=== PATIENT | female | born 1935 | race Caucasian/White ===

== ENCOUNTER 2020-02-11 07:05 | Outpatient (REF) | payer MEDICARE, SELFPAY ==
[2020-02-11 07:45] LABS: MANUAL DIFF FLAG NO
[2020-02-11 07:54] LABS: Basophils Percent Auto 0.6 % (0-2); Eosinophils Absolute Auto 0.1 X10*3/uL (0.0-0.4); Eosinophils Percent Auto 2.5 % (0-4); Hematocrit 45.4 % (37-47); Hemoglobin 14.6 g/dl (12.0-16.0); Imm Gran Abs Auto 0.02 X10*3/uL (0.00-0.03); Imm Gran Pct Auto 0.4 % (0.0-0.4); Lymphocytes Absolute Auto 1.6 X10*3/uL (1.2-4.9); Lymphocytes Percent Auto 33.7 % (20-40); Mean Corpuscular HGB Conc 32.2 g/dl (31.0-35.0); Mean Corpuscular Hemoglobin 29.6 pg (27.0-33.0); Mean Corpuscular Volume 91.9 fL (80-98); Mean Platelet Volume 10.9 fL (9.4-12.3); Monocytes Absolute Auto 0.5 X10*3/uL (0.1-1.2); Monocytes Percent Auto 10.3 % (2-11); Neutrophils Absolute Auto 2.5 X10*3/uL (2.0-8.3); Neutrophils Percent Auto 52.5 % (45-73); Platelet Count 146 X10*3/uL (160-400); Red Blood Count 4.94 X10*6/uL (4.20-5.50); Red Cell Distribution Width 12.4 % (11.0-16.0); White Blood Count 4.8 X10*3/uL (4.8-10.8)
[2020-02-11 08:17] LABS: Alanine Aminotransferase 11 U/L (0-31); Albumin Level 4.1 g/dL (3.5-5.0); Alkaline Phosphatase 90 U/L (39-117); Anion Gap 13 (12-20); Aspartate Amino Transferase 16 U/L (5-31); Blood Urea Nitrogen 13 mg/dL (9-16); Calcium 8.8 mg/dL (8.4-10.2); Carbon Dioxide 26 mmol/L (22-29); Chloride 107 mmol/L (96-108); Cholesterol 148 mg/dL; Estimated Glomerular Filt Rate 57; Glucose Fasting 103 mg/dL (60-99); HDL Cholesterol 42 mg/dL; LDL Cholesterol Calculated 78 mg/dl; Potassium 4.6 mmol/l (3.3-5.1); Sodium 141 mmol/L (135-145); Total Protein 6.5 g/dL (6.5-8.0); Triglycerides 140 mg/dL
== END 2020-02-11 07:06 | disposition home or self-care (01) ==
LOC: HO.LAB 07:05
PROVIDERS: Visit Provider Internal Medicine
DX: Z00.00 Encounter for general adult medical examination without abnormal findings (principal); E78.00 Pure hypercholesterolemia, unspecified; I10 Essential (primary) hypertension; M17.4 Other bilateral secondary osteoarthritis of knee; Z13.31 Encounter for screening for depression
CPT/HCPCS: 36415; 80053; 80061; 85025

== ENCOUNTER 2020-07-30 07:29 | Outpatient (REF) | payer MEDICARE, SELFPAY ==
[2020-07-30 09:27] LABS: Alanine Aminotransferase 8 U/L (0-31); Albumin Level 3.8 g/dL (3.5-5.0); Alkaline Phosphatase 95 U/L (39-117); Anion Gap 13 (12-20); Aspartate Amino Transferase 17 U/L (5-31); Blood Urea Nitrogen 13 mg/dL (9-16); Carbon Dioxide 25 mmol/L (22-29); Chloride 110 mmol/L (96-108); Estimated Glomerular Filt Rate 57; Glucose Random 103 mg/dL (60-115); Potassium 4.6 mmol/L (3.3-5.1); Sodium 143 mmol/L (135-145); Total Protein 6.3 g/dL (6.5-8.0)
== END 2020-07-30 07:30 | disposition home or self-care (01) ==
LOC: HO.LAB 07:29
PROVIDERS: PCP Internal Medicine; Visit Provider Internal Medicine
DX: E78.00 Pure hypercholesterolemia, unspecified (principal); I10 Essential (primary) hypertension; Z68.29 Body mass index [BMI] 29.0-29.9, adult
CPT/HCPCS: 36415; 80053

== ENCOUNTER 2021-02-05 09:17 | Outpatient (REF) | payer MEDICARE, SELFPAY ==
[2021-02-05 10:20] LABS: MANUAL DIFF FLAG NO
[2021-02-05 10:25] LABS: Basophils Percent Auto 0.6 % (0-2); Eosinophils Absolute Auto 0.1 X10*3/uL (0.0-0.4); Eosinophils Percent Auto 2.1 % (0-4); Hematocrit 45.9 % (37.0-47.0); Hemoglobin 14.8 g/dl (12.0-16.0); Imm Gran Abs Auto 0.01 X10*3/uL (0.00-0.03); Imm Gran Pct Auto 0.2 % (0.0-0.4); Lymphocytes Absolute Auto 1.4 X10*3/uL (1.2-4.9); Lymphocytes Percent Auto 27.4 % (20-40); Mean Corpuscular HGB Conc 32.2 g/dl (31.0-35.0); Mean Platelet Volume 10.9 fL (9.4-12.3); Monocytes Absolute Auto 0.6 X10*3/uL (0.1-1.2); Monocytes Percent Auto 11.2 % (2-11); Neutrophils Absolute Auto 3.1 x10*3/uL (2.0-8.3); Neutrophils Percent Auto 58.5 % (45-73); Platelet Count 151 X10*3/uL (160-400); Red Cell Distribution Width 12.2 % (11.0-16.0); White Blood Count 5.3 X10*3/uL (4.8-10.8)
[2021-02-05 10:49] LABS: Alanine Aminotransferase 14 U/L (0-31); Albumin Level 4.2 g/dL (3.5-5.0); Alkaline Phosphatase 88 U/L (39-117); Anion Gap 10 (12-20); Aspartate Amino Transferase 19 U/L (5-31); Bilirubin Total 1.1 mg/dL (0.0-1.0); Blood Urea Nitrogen 13 mg/dL (9-16); Calcium 9.1 mg/dL (8.4-10.2); Carbon Dioxide 28 mmol/L (22-29); Chloride 107 mmol/L (96-108); Cholesterol 155 mg/dL; Estimated Glomerular Filt Rate 54; Glucose Fasting 109 mg/dL (60-99); HDL Cholesterol 45 mg/dL; LDL Cholesterol Calculated 79 mg/dl; Potassium 4.4 mmol/L (3.3-5.1); Sodium 141 mmol/L (135-145); Total Protein 6.8 g/dL (6.5-8.0); Triglycerides 159 mg/dL
[2021-02-05 11:12] LABS: Thyroid Stimulating Hormone 0.76 uIU/mL (0.32-4.0)
== END 2021-02-05 09:18 | disposition home or self-care (01) ==
LOC: HO.10HDL 09:17
PROVIDERS: Visit Provider Internal Medicine
DX: Z00.00 Encounter for general adult medical examination without abnormal findings (principal); E78.00 Pure hypercholesterolemia, unspecified; I10 Essential (primary) hypertension; Z85.038 Personal history of other malignant neoplasm of large intestine; Z85.3 Personal history of malignant neoplasm of breast
CPT/HCPCS: 36415; 80053; 80061; 84443; 85025

== ENCOUNTER 2021-09-23 07:36 | Outpatient (REF) | payer MEDICARE, SELFPAY ==
[2021-09-23 07:58] LABS: MANUAL DIFF FLAG NO
[2021-09-23 08:47] LABS: Basophils Percent Auto 0.5 % (0-2); Eosinophils Absolute Auto 0.1 X10*3/uL (0.0-0.4); Eosinophils Percent Auto 2.5 % (0-4); Hematocrit 43.9 % (37.0-47.0); Imm Gran Abs Auto 0.01 X10*3/uL (0.00-0.03); Imm Gran Pct Auto 0.2 % (0.0-0.4); Lymphocytes Absolute Auto 1.5 X10*3/uL (1.2-4.9); Lymphocytes Percent Auto 35.2 % (20-40); Mean Corpuscular HGB Conc 31.9 g/dl (31.0-35.0); Mean Corpuscular Hemoglobin 28.7 pg (27.0-33.0); Monocytes Absolute Auto 0.5 X10*3/uL (0.1-1.2); Monocytes Percent Auto 11.2 % (2-11); Neutrophils Absolute Auto 2.2 x10*3/uL (2.0-8.3); Neutrophils Percent Auto 50.4 % (45-73); Platelet Count 132 X10*3/uL (160-400); Red Blood Count 4.88 X10*6/uL (4.20-5.50); Red Cell Distribution Width 12.3 % (11.0-16.0); White Blood Count 4.4 X10*3/uL (4.8-10.8)
[2021-09-23 09:05] LABS: Alanine Aminotransferase 15 U/L (0-31); Albumin Level 3.8 g/dL (3.5-5.0); Alkaline Phosphatase 89 U/L (39-117); Anion Gap 10 (12-20); Aspartate Amino Transferase 20 U/L (5-31); Bilirubin Total 0.8 mg/dL (0.0-1.0); Blood Urea Nitrogen 10 mg/dL (9-16); Calcium 8.8 mg/dL (8.4-10.2); Carbon Dioxide 28 mmol/L (22-29); Chloride 110 mmol/L (96-108); Estimated Glomerular Filt Rate 57; Glucose Random 112 mg/dL (60-115); Potassium 4.4 mmol/L (3.3-5.1); Sodium 144 mmol/L (135-145); Total Protein 6.2 g/dL (6.5-8.0)
== END 2021-09-23 07:37 | disposition home or self-care (01) ==
LOC: HO.LAB 07:36
PROVIDERS: PCP Internal Medicine; Visit Provider Internal Medicine
DX: D69.6 Thrombocytopenia, unspecified (principal); E78.00 Pure hypercholesterolemia, unspecified; I10 Essential (primary) hypertension
CPT/HCPCS: 36415; 80053; 85025

== ENCOUNTER 2021-10-19 14:15 | Outpatient (REF) | payer MEDICARE, SELFPAY ==
--- NOTE | ~2021-10-19 | XR_ITS ---
EXAMINATION: XR LUMBAR SPINE XR PELVIS CLINICAL INFORMATION: Low back pain. Pelvic pain. COMPARISON: None TECHNIQUE: 3 views lumbar spine. Pelvis 2 views. FINDINGS: Lumbar Spine: There is normal lumbar lordosis. The vertebral heights, alignment and disc heights are normal. There is mild bilateral facet joint hypertrophy at the L5-S1 disc level slightly greater on the right. No acute fracture or lytic process seen. The paravertebral soft tissues are normal. Pelvis: The pelvis is mildly tilted right higher than left hip. SI joints are symmetrical. No fracture or lytic process seen. The soft tissues are normal. XR/XR pelvis min 3V IMPRESSION: Moderate right L5-S1 facet joint arthropathy. No acute fracture, dislocation or lytic process lumbar spine. Mild pelvic tilt; otherwise, no visible acute fracture, dislocation or lytic process seen.
--- NOTE | ~2021-10-19 | XR_ITS ---
EXAMINATION: XR LUMBAR SPINE XR PELVIS CLINICAL INFORMATION: Low back pain. Pelvic pain. COMPARISON: None TECHNIQUE: 3 views lumbar spine. Pelvis 2 views. FINDINGS: Lumbar Spine: There is normal lumbar lordosis. The vertebral heights, alignment and disc heights are normal. There is mild bilateral facet joint hypertrophy at the L5-S1 disc level slightly greater on the right. No acute fracture or lytic process seen. The paravertebral soft tissues are normal. Pelvis: The pelvis is mildly tilted right higher than left hip. SI joints are symmetrical. No fracture or lytic process seen. The soft tissues are normal. XR/XR lumbar spine 2-3V IMPRESSION: Moderate right L5-S1 facet joint arthropathy. No acute fracture, dislocation or lytic process lumbar spine. Mild pelvic tilt; otherwise, no visible acute fracture, dislocation or lytic process seen.
== END 2021-10-19 14:16 | disposition home or self-care (01) ==
LOC: HO.XRAY 14:15
PROVIDERS: PCP Internal Medicine; Visit Provider Internal Medicine Medical Oncology
DX: C18.9 Malignant neoplasm of colon, unspecified (principal); M54.50 Low back pain, unspecified; C50.919 Malignant neoplasm of unspecified site of unspecified female breast
CPT/HCPCS: 72100; 72190

== ENCOUNTER 2022-01-12 07:50 | Outpatient (REF) | payer MEDICARE, SELFPAY ==
[2022-01-12 08:04] LABS: MANUAL DIFF FLAG NO
[2022-01-12 08:19] LABS: Basophils Percent Auto 0.5 % (0-2); Eosinophils Absolute Auto 0.1 X10*3/uL (0.0-0.4); Eosinophils Percent Auto 2.9 % (0-4); Hematocrit 44.5 % (37.0-47.0); Hemoglobin 14.3 g/dl (12.0-16.0); Imm Gran Abs Auto 0.01 X10*3/uL (0.00-0.03); Imm Gran Pct Auto 0.3 % (0.0-0.4); Lymphocytes Absolute Auto 1.4 X10*3/uL (1.2-4.9); Lymphocytes Percent Auto 36.5 % (20-40); Mean Corpuscular HGB Conc 32.1 g/dl (31.0-35.0); Mean Corpuscular Hemoglobin 28.9 pg (27.0-33.0); Mean Corpuscular Volume 90.1 fL (80.0-98.0); Mean Platelet Volume 10.9 fL (9.4-12.3); Monocytes Absolute Auto 0.5 X10*3/uL (0.1-1.2); Monocytes Percent Auto 11.7 % (2-11); Neutrophils Absolute Auto 1.9 x10*3/uL (2.0-8.3); Neutrophils Percent Auto 48.1 % (45-73); Platelet Count 149 X10*3/uL (160-400); Red Blood Count 4.94 X10*6/uL (4.20-5.50); Red Cell Distribution Width 12.5 % (11.0-16.0); White Blood Count 3.8 X10*3/uL (4.8-10.8)
[2022-01-12 08:59] LABS: Alanine Aminotransferase 13 U/L (0-31); Albumin Level 4.1 g/dL (3.5-5.0); Alkaline Phosphatase 86 U/L (39-117); Anion Gap 15 (12-20); Aspartate Amino Transferase 22 U/L (5-31); Blood Urea Nitrogen 10 mg/dL (9-16); Calcium 9.2 mg/dL (8.4-10.2); Carbon Dioxide 27 mmol/L (22-29); Chloride 106 mmol/L (96-108); Cholesterol 147 mg/dL; Estimated Glomerular Filt Rate 50; Glucose Fasting 112 mg/dL (60-99); HDL Cholesterol 43 mg/dL; LDL Cholesterol Calculated 78 mg/dl; Potassium 4.6 mmol/L (3.3-5.1); Sodium 143 mmol/L (135-145); Total Protein 6.6 g/dL (6.5-8.0); Triglycerides 133 mg/dL
== END 2022-01-12 07:51 | disposition home or self-care (01) ==
LOC: HO.LAB 07:50
PROVIDERS: PCP Internal Medicine; Visit Provider Internal Medicine Medical Oncology
DX: E66.3 Overweight (principal); E78.2 Mixed hyperlipidemia
CPT/HCPCS: 36415; 80053; 80061; 85025

== ENCOUNTER 2022-01-29 08:06 | Outpatient (REF) | payer MEDICARE, SELFPAY ==
[2022-01-29 08:21] LABS: MANUAL DIFF FLAG NO
[2022-01-29 09:01] LABS: Basophils Percent Auto 0.5 % (0-2); Eosinophils Absolute Auto 0.1 X10*3/uL (0.0-0.4); Eosinophils Percent Auto 2.4 % (0-4); Hematocrit 45.2 % (37.0-47.0); Hemoglobin 14.3 g/dl (12.0-16.0); Imm Gran Abs Auto 0.01 X10*3/uL (0.00-0.03); Imm Gran Pct Auto 0.2 % (0.0-0.4); Lymphocytes Absolute Auto 1.6 X10*3/uL (1.2-4.9); Lymphocytes Percent Auto 38.6 % (20-40); Mean Corpuscular HGB Conc 31.6 g/dl (31.0-35.0); Mean Corpuscular Hemoglobin 28.6 pg (27.0-33.0); Mean Corpuscular Volume 90.4 fL (80.0-98.0); Monocytes Absolute Auto 0.4 X10*3/uL (0.1-1.2); Monocytes Percent Auto 10.3 % (2-11); Platelet Count 134 X10*3/uL (160-400); Red Cell Distribution Width 12.8 % (11.0-16.0); White Blood Count 4.1 X10*3/uL (4.8-10.8)
[2022-01-29 09:27] LABS: Estimated Average Glucose 120 mg/dL; Hemoglobin A1c % 5.8 %
[2022-01-29 09:40] LABS: Alanine Aminotransferase 16 U/L (0-31); Albumin Level 4.1 g/dL (3.5-5.0); Alkaline Phosphatase 88 U/L (39-117); Anion Gap 14 (12-20); Aspartate Amino Transferase 20 U/L (5-31); Blood Urea Nitrogen 11 mg/dL (9-16); Calcium 9.4 mg/dL (8.4-10.2); Carbon Dioxide 26 mmol/L (22-29); Chloride 109 mmol/L (96-108); Cholesterol 161 mg/dL; Estimated Glomerular Filt Rate 57; Glucose Random 103 mg/dL (60-115); HDL Cholesterol 48 mg/dL; LDL Cholesterol Calculated 89 mg/dl; Potassium 5.1 mmol/L (3.3-5.1); Sodium 144 mmol/L (135-145); Total Protein 6.7 g/dL (6.5-8.0); Triglycerides 121 mg/dL
[2022-01-29 09:50] LABS: Thyroid Stimulating Hormone 0.61 uIU/mL (0.32-4.0); Vitamin D 25-OH Total 13.5 ng/mL (>30)
== END 2022-01-29 08:07 | disposition home or self-care (01) ==
LOC: HO.LAB 08:06
PROVIDERS: PCP Internal Medicine; Visit Provider Internal Medicine
DX: D69.6 Thrombocytopenia, unspecified (principal); I10 Essential (primary) hypertension; M79.18 Myalgia, other site; R53.83 Other fatigue; R73.01 Impaired fasting glucose; Z85.038 Personal history of other malignant neoplasm of large intestine
CPT/HCPCS: 36415; 80053; 80061; 82306; 83036; 84443; 85025

== ENCOUNTER 2022-03-31 08:14 | Outpatient (REF) | payer MEDICARE, SELFPAY ==
[2022-03-31 08:24] LABS: MANUAL DIFF FLAG NO
[2022-03-31 08:35] LABS: Basophils Absolute Auto 0.1 X10*3/uL (0.0-0.2); Basophils Percent Auto 0.9 % (0-2); Eosinophils Absolute Auto 0.1 X10*3/uL (0.0-0.4); Eosinophils Percent Auto 2.2 % (0-4); Hematocrit 47.5 % (37.0-47.0); Hemoglobin 15.4 g/dl (12.0-16.0); Imm Gran Abs Auto 0.02 X10*3/uL (0.00-0.03); Imm Gran Pct Auto 0.4 % (0.0-0.4); Lymphocytes Absolute Auto 1.8 X10*3/uL (1.2-4.9); Lymphocytes Percent Auto 33.1 % (20-40); Mean Corpuscular HGB Conc 32.4 g/dl (31.0-35.0); Mean Corpuscular Hemoglobin 28.9 pg (27.0-33.0); Mean Corpuscular Volume 89.1 fL (80.0-98.0); Mean Platelet Volume 10.6 fL (9.4-12.3); Monocytes Absolute Auto 0.6 X10*3/uL (0.1-1.2); Monocytes Percent Auto 11.2 % (2-11); Neutrophils Absolute Auto 2.8 x10*3/uL (2.0-8.3); Neutrophils Percent Auto 52.2 % (45-73); Platelet Count 146 X10*3/uL (160-400); Red Blood Count 5.33 X10*6/uL (4.20-5.50); Red Cell Distribution Width 12.3 % (11.0-16.0); White Blood Count 5.4 X10*3/uL (4.8-10.8)
== END 2022-03-31 08:15 | disposition home or self-care (01) ==
LOC: HO.LAB 08:14
PROVIDERS: PCP Internal Medicine; Visit Provider Internal Medicine Medical Oncology
DX: D69.6 Thrombocytopenia, unspecified (principal)
CPT/HCPCS: 36415; 85025

== ENCOUNTER 2022-07-28 08:03 | Outpatient (REF) | payer MEDICARE, SELFPAY ==
[2022-07-28 08:13] LABS: MANUAL DIFF FLAG NO
[2022-07-28 08:21] LABS: Basophils Percent Auto 0.6 % (0-2); Eosinophils Absolute Auto 0.1 X10*3/uL (0.0-0.4); Eosinophils Percent Auto 2.6 % (0-4); Imm Gran Abs Auto 0.01 X10*3/uL (0.00-0.03); Imm Gran Pct Auto 0.2 % (0.0-0.4); Lymphocytes Absolute Auto 1.6 X10*3/uL (1.2-4.9); Lymphocytes Percent Auto 31.7 % (20-40); Mean Corpuscular HGB Conc 32.6 g/dl (31.0-35.0); Mean Corpuscular Hemoglobin 29.6 pg (27.0-33.0); Mean Corpuscular Volume 90.7 fL (80.0-98.0); Mean Platelet Volume 10.6 fL (9.4-12.3); Monocytes Absolute Auto 0.5 X10*3/uL (0.1-1.2); Monocytes Percent Auto 10.3 % (2-11); Neutrophils Absolute Auto 2.8 x10*3/uL (2.0-8.3); Neutrophils Percent Auto 54.6 % (45-73); Platelet Count 141 X10*3/uL (160-400); Red Blood Count 5.07 X10*6/uL (4.20-5.50); Red Cell Distribution Width 12.6 % (11.0-16.0); White Blood Count 5.1 X10*3/uL (4.8-10.8)
[2022-07-28 08:58] LABS: Alanine Aminotransferase 10 U/L (0-31); Alkaline Phosphatase 102 U/L (39-117); Anion Gap 9 (12-20); Aspartate Amino Transferase 16 U/L (5-31); Bilirubin Total 1.1 mg/dL (0.0-1.0); Blood Urea Nitrogen 16 mg/dL (9-16); Calcium 9.3 mg/dL (8.4-10.2); Carbon Dioxide 30 mmol/L (22-29); Chloride 110 mmol/L (96-108); Estimated Glomerular Filt Rate 51; Glucose Random 107 mg/dL (60-115); Potassium 4.7 mmol/L (3.3-5.1); Sodium 144 mmol/L (135-145); Total Protein 6.5 g/dL (6.5-8.0)
[2022-07-28 09:12] LABS: Vitamin D 25-OH Total 25.2 ng/mL (>30)
== END 2022-07-28 08:04 | disposition home or self-care (01) ==
LOC: HO.LAB 08:03
PROVIDERS: PCP Internal Medicine Medical Oncology; Visit Provider Internal Medicine
DX: Z00.00 Encounter for general adult medical examination without abnormal findings (principal); D69.6 Thrombocytopenia, unspecified; E78.00 Pure hypercholesterolemia, unspecified; I10 Essential (primary) hypertension; M81.0 Age-related osteoporosis without current pathological fracture
CPT/HCPCS: 36415; 80053; 82306; 85025

== ENCOUNTER 2022-08-30 09:01 | Outpatient (REF) | payer MEDICARE, SELFPAY ==
[2022-08-30 09:15] LABS: MANUAL DIFF FLAG NO
[2022-08-30 09:37] LABS: Basophils Percent Auto 0.6 % (0-2); Eosinophils Absolute Auto 0.1 X10*3/uL (0.0-0.4); Eosinophils Percent Auto 2.3 % (0-4); Hematocrit 47.9 % (37.0-47.0); Hemoglobin 15.2 g/dl (12.0-16.0); Imm Gran Abs Auto 0.01 X10*3/uL (0.00-0.03); Imm Gran Pct Auto 0.2 % (0.0-0.4); Lymphocytes Absolute Auto 1.6 X10*3/uL (1.2-4.9); Lymphocytes Percent Auto 30.2 % (20-40); Mean Corpuscular HGB Conc 31.7 g/dl (31.0-35.0); Mean Corpuscular Hemoglobin 28.9 pg (27.0-33.0); Mean Corpuscular Volume 91.1 fL (80.0-98.0); Mean Platelet Volume 10.9 fL (9.4-12.3); Monocytes Absolute Auto 0.5 X10*3/uL (0.1-1.2); Monocytes Percent Auto 10.1 % (2-11); Neutrophils Percent Auto 56.6 % (45-73); Platelet Count 144 X10*3/uL (160-400); Red Blood Count 5.26 X10*6/uL (4.20-5.50); Red Cell Distribution Width 12.4 % (11.0-16.0); White Blood Count 5.3 X10*3/uL (4.8-10.8)
[2022-08-30 10:20] LABS: Alanine Aminotransferase 13 U/L (0-31); Albumin Level 4.1 g/dL (3.5-5.0); Alkaline Phosphatase 99 U/L (39-117); Anion Gap 14 (12-20); Aspartate Amino Transferase 19 U/L (5-31); Bilirubin Total 1.1 mg/dL (0.0-1.0); Blood Urea Nitrogen 15 mg/dL (9-16); Calcium 9.3 mg/dL (8.4-10.2); Carbon Dioxide 24 mmol/L (22-29); Chloride 111 mmol/L (96-108); Estimated Glomerular Filt Rate 53; Glucose Random 111 mg/dL (60-115); Potassium 5.1 mmol/L (3.3-5.1); Sodium 144 mmol/L (135-145); Total Protein 6.7 g/dL (6.5-8.0)
== END 2022-08-30 09:02 | disposition home or self-care (01) ==
LOC: HO.LAB 09:01
PROVIDERS: PCP Internal Medicine; Visit Provider Internal Medicine Medical Oncology
DX: C18.9 Malignant neoplasm of colon, unspecified (principal); C50.919 Malignant neoplasm of unspecified site of unspecified female breast; D69.6 Thrombocytopenia, unspecified
CPT/HCPCS: 36415; 80053; 85025

== ENCOUNTER 2022-10-19 08:52 | Outpatient (REF) | payer MEDICARE, SELFPAY ==
--- NOTE | ~2022-10-19 | MM_ITS ---
EXAMINATION: MM SCREENING DIGITAL BREAST TOMOSYNTHESIS, BILATERAL CLINICAL INFORMATION: Screening. Asymptomatic. The patient has remote history of right breast cancer conservatively treated. COMPARISON: Mammography: This study is compared with prior exams dating back to 2013. TECHNIQUE: Digital breast tomosynthesis is performed in both the craniocaudal and mediolateral oblique views along with computer-aided detection (CAD). Synthesized 2D images are generated from the tomosynthesis. FINDINGS: There are scattered areas of fibroglandular density (ACR BI-RADS breast composition Category b). There are no significant masses, abnormal calcifications, or other abnormalities. There are postsurgical changes in the superior aspect of the right breast. There is associated fat necrosis in this which is manifested as benign macrocalcification. MM/MM tomosynthesis screening BI IMPRESSION: No mammographic evidence of malignancy. ASSESSMENT: BI-RADS BI-RADS 2 - Benign Findings RECOMMENDATION: Routine annual mammography screening. 1 year F/U This examination should not preclude the clinical evaluation of a suspicious palpable abnormality. This patient's information was entered into a reminder system with a target due date for their next mammogram.
== END 2022-10-19 08:53 | disposition home or self-care (01) ==
LOC: HO.MAMMO 08:52
PROVIDERS: PCP Internal Medicine Medical Oncology; Visit Provider Internal Medicine Medical Oncology
DX: Z12.31 Encounter for screening mammogram for malignant neoplasm of breast (principal)
CPT/HCPCS: 77063; 77067

== ENCOUNTER → 2022-10-19 09:15 | Outpatient (BNV) | payer MEDICARE, SELFPAY | PROVIDERS: PCP Internal Medicine Medical Oncology; Visit Provider Radiology Diagnostic Radiology | DX: Z12.31 Encounter for screening mammogram for malignant neoplasm of breast (principal) | CPT/HCPCS: 77063; 77067 ==

== ENCOUNTER 2023-03-08 07:46 | Outpatient (REF) | payer MEDICARE, SELFPAY ==
[2023-03-08 08:13] LABS: MANUAL DIFF FLAG NO
[2023-03-08 08:55] LABS: Basophils Percent Auto 0.6 % (0-2); Eosinophils Absolute Auto 0.1 X10*3/uL (0.0-0.4); Eosinophils Percent Auto 2.4 % (0-4); Hematocrit 43.3 % (37.0-47.0); Imm Gran Abs Auto 0.01 X10*3/uL (0.00-0.03); Imm Gran Pct Auto 0.2 % (0.0-0.4); Lymphocytes Absolute Auto 1.5 X10*3/uL (1.2-4.9); Lymphocytes Percent Auto 29.5 % (20-40); Mean Corpuscular HGB Conc 32.3 g/dl (31.0-35.0); Mean Corpuscular Hemoglobin 29.7 pg (27.0-33.0); Mean Corpuscular Volume 91.7 fL (80.0-98.0); Mean Platelet Volume 11.2 fL (9.4-12.3); Monocytes Absolute Auto 0.5 X10*3/uL (0.1-1.2); Monocytes Percent Auto 10.8 % (2-11); Neutrophils Absolute Auto 2.8 x10*3/uL (2.0-8.3); Neutrophils Percent Auto 56.5 % (45-73); Platelet Count 141 X10*3/uL (160-400); Red Blood Count 4.72 X10*6/uL (4.20-5.50); Red Cell Distribution Width 12.5 % (11.0-16.0)
[2023-03-08 09:24] LABS: Alanine Aminotransferase 10 U/L (0-31); Albumin Level 3.8 g/dL (3.5-5.0); Alkaline Phosphatase 93 U/L (39-117); Anion Gap 11 (12-20); Aspartate Amino Transferase 15 U/L (5-31); Bilirubin Total 0.8 mg/dL (0.0-1.0); Blood Urea Nitrogen 14 mg/dL (9-16); Calcium 8.4 mg/dL (8.4-10.2); Carbon Dioxide 29 mmol/L (22-29); Chloride 109 mmol/L (96-108); Cholesterol 138 mg/dL (<200); Estimated Glomerular Filt Rate 58; Glucose Random 109 mg/dL (60-115); HDL Cholesterol 43 mg/dL (>40); LDL Cholesterol Calculated 76 mg/dL (<100); Potassium 4.3 mmol/L (3.3-5.1); Sodium 145 mmol/L (135-145); Total Protein 6.4 g/dL (6.5-8.0); Triglycerides 97 mg/dL (<150)
[2023-03-08 09:43] LABS: Vitamin B12 > 2000 pg/mL (200-900)
[2023-03-08 09:46] LABS: Vitamin D 25-OH Total 26.2 ng/mL (>30)
== END 2023-03-08 07:47 | disposition home or self-care (01) ==
LOC: HO.LAB 07:46
PROVIDERS: PCP Internal Medicine; Visit Provider Internal Medicine
DX: D51.9 Vitamin B12 deficiency anemia, unspecified (principal); D69.6 Thrombocytopenia, unspecified; E78.00 Pure hypercholesterolemia, unspecified; I10 Essential (primary) hypertension; M81.8 Other osteoporosis without current pathological fracture
CPT/HCPCS: 36415; 80053; 80061; 82306; 82607; 85025

== ENCOUNTER 2023-09-05 08:00 | Outpatient (REF) | payer MEDICARE, SELFPAY ==
[2023-09-05 08:15] LABS: MANUAL DIFF FLAG NO
[2023-09-05 08:41] LABS: Basophils Percent Auto 0.7 % (0-2); Eosinophils Absolute Auto 0.1 X10*3/uL (0.0-0.4); Eosinophils Percent Auto 2.7 % (0-4); Hematocrit 43.9 % (37.0-47.0); Hemoglobin 14.5 g/dl (12.0-16.0); Imm Gran Abs Auto 0.02 X10*3/uL (0.00-0.03); Imm Gran Pct Auto 0.5 % (0.0-0.4); Lymphocytes Absolute Auto 1.4 X10*3/uL (1.2-4.9); Lymphocytes Percent Auto 32.5 % (20-40); Mean Corpuscular Hemoglobin 29.7 pg (27.0-33.0); Mean Corpuscular Volume 89.8 fL (80.0-98.0); Mean Platelet Volume 10.9 fL (9.4-12.3); Monocytes Absolute Auto 0.5 X10*3/uL (0.1-1.2); Monocytes Percent Auto 10.8 % (2-11); Neutrophils Absolute Auto 2.2 x10*3/uL (2.0-8.3); Neutrophils Percent Auto 52.8 % (45-73); Platelet Count 146 X10*3/uL (160-400); Red Blood Count 4.89 X10*6/uL (4.20-5.50); Red Cell Distribution Width 12.6 % (11.0-16.0); White Blood Count 4.2 X10*3/uL (4.8-10.8)
[2023-09-05 09:27] LABS: Alanine Aminotransferase 12 U/L (0-31); Albumin Level 3.9 g/dL (3.5-5.0); Alkaline Phosphatase 92 U/L (39-117); Anion Gap 14 (12-20); Aspartate Amino Transferase 18 U/L (5-31); Bilirubin Total 0.9 mg/dL (0.0-1.0); Blood Urea Nitrogen 15 mg/dL (9-16); Calcium 9.6 mg/dL (8.4-10.2); Carbon Dioxide 27 mmol/L (22-29); Chloride 109 mmol/L (96-108); Estimated Glomerular Filt Rate 60; Glucose Random 111 mg/dL (60-115); Potassium 4.2 mmol/L (3.3-5.1); Sodium 146 mmol/L (135-145); Total Protein 6.6 g/dL (6.5-8.0)
[2023-09-05 09:47] LABS: Ferritin 143 ng/mL (10-250)
== END 2023-09-05 08:01 | disposition home or self-care (01) ==
LOC: HO.LAB 08:00
PROVIDERS: PCP Internal Medicine; Visit Provider Internal Medicine
DX: Z00.00 Encounter for general adult medical examination without abnormal findings (principal); D69.6 Thrombocytopenia, unspecified; E78.00 Pure hypercholesterolemia, unspecified; G25.81 Restless legs syndrome; I10 Essential (primary) hypertension
CPT/HCPCS: 36415; 80053; 82728; 85025

== ENCOUNTER 2024-03-05 08:04 | Outpatient (REF) | payer MEDICARE, SELFPAY ==
[2024-03-05 08:17] LABS: MANUAL DIFF FLAG NO
[2024-03-05 09:18] LABS: Basophils Absolute Auto 0.1 X10*3/uL (0.0-0.2); Basophils Percent Auto 1.2 % (0-2); Eosinophils Absolute Auto 0.1 X10*3/uL (0.0-0.4); Eosinophils Percent Auto 2.5 % (0-4); Hematocrit 46.5 % (37.0-47.0); Hemoglobin 14.8 g/dl (12.0-16.0); Imm Gran Abs Auto 0.01 X10*3/uL (0.00-0.03); Imm Gran Pct Auto 0.2 % (0.0-0.4); Lymphocytes Absolute Auto 1.4 X10*3/uL (1.2-4.9); Lymphocytes Percent Auto 32.4 % (20-40); Mean Corpuscular HGB Conc 31.8 g/dl (31.0-35.0); Mean Platelet Volume 10.9 fL (9.4-12.3); Monocytes Absolute Auto 0.4 X10*3/uL (0.1-1.2); Neutrophils Absolute Auto 2.3 x10*3/uL (2.0-8.3); Neutrophils Percent Auto 53.7 % (45-73); Platelet Count 157 X10*3/uL (160-400); Red Blood Count 5.11 X10*6/uL (4.20-5.50); Red Cell Distribution Width 12.4 % (11.0-16.0); White Blood Count 4.3 X10*3/uL (4.8-10.8)
[2024-03-05 09:49] LABS: Alanine Aminotransferase 13 U/L (0-31); Albumin Level 3.9 g/dL (3.5-5.0); Alkaline Phosphatase 98 U/L (39-117); Anion Gap 7 (12-20); Aspartate Amino Transferase 21 U/L (5-31); Bilirubin Total 0.6 mg/dL (0.0-1.0); Blood Urea Nitrogen 12 mg/dL (9-16); Calcium 9.2 mg/dL (8.4-10.2); Carbon Dioxide 29 mmol/L (22-29); Chloride 109 mmol/L (96-108); Cholesterol 157 mg/dL (<200); Estimated Glomerular Filt Rate > 60; Glucose Random 114 mg/dL (60-115); HDL Cholesterol 48 mg/dL (>40); LDL Cholesterol Calculated 90 mg/dL (<100); Potassium 4.3 mmol/L (3.3-5.1); Sodium 141 mmol/L (135-145); Total Protein 6.6 g/dL (6.5-8.0); Triglycerides 98 mg/dL (<150)
[2024-03-05 10:13] LABS: Thyroid Stimulating Hormone 0.72 uIU/mL (0.32-4.0)
--- OUTSIDE RECORDS SUMMARY | 2024-03-07 12:47 | XMS_ITS | Patient Health Record ---
Author Organization Fox Smith III, MD Address [address] [place] [address] Care Team Providers Care Sales Clerk Supervisor Name Role Phone Millie SANTIAGO, [facility] Primary Care Provider Fox Velazco Unavailable [phone] Allergies Allergen (clinical drug ingredient) Drug/Non Drug Allergy documented on EMR Reaction Allergy Type Onset Date Status meperidine Demerol Unknown Drug Allergy Active Reason For Referral No Information Medications Medication SIG (Take, Route, Frequency, Duration) Notes Start Date End Date Status Pramipexole Dihydrochloride 0.5 MG Oral for 90 Days Not-Taking B12 Active Metoprolol Succinate ER 50 MG 1 tablet Orally Once a day Active Omeprazole 20 MG 1 capsule 30 minutes before morning meal Orally Once a day Active Simvastatin 10 MG as directed Orally Once a day Active Pravastatin Sodium A ctive Social History Tobacco Use: Social History Observation Description Date Details (start date - stop date) Never Smoker NA - NA Tobacco Use/Smoking Question Answer Notes Patient is a nonsmoker Additional Findings: Tobacco Non-User Aggressive non-smoker Alcohol Screen Question Answer Notes Did you have a drink containing alcohol in the p ast year? No Points 0 Interpretation Negative Problems Problem Type SNOMED Code ICD Code Onset Dates Problem Status W/U Status Risk Notes Problem 649664823 Overweight (E66.3) Active confirmed Her body mass index is 28. I recommended she stabilize her weight and then reduce it by one half of a pound per week until about a mass index is in the normal range. Problem Gastroesophageal reflux disease (949565621) GERD (gastroesophageal reflux disease) (K21.9) Active confirmed Her reflux symptoms are controlled with medication and antacids. Problem Breast cancer (866489456) Breast cancer (C50.919) Active confirmed There were no masses palppable in either breast. The lumpectomy scar is well-healed. There was no sign of a new primary or recurrent disease. Observation will continue. Problem 358044742 Thrombocytopenia (D69.6) Active confirmed Her platelets are stable at 144,000. No therapy is necessary.Her blood work will be repeated prior to her next visit. She will avoidd aspirin. Problem 871069697 Other neutropeni a (D70.8) Active confirmed Her current white blood cell count is 5400 with 2800, absolute neutrophils. This problem has resolved. Problem 986647940 Mixed hyperlipidemia (E78.2) Active confirmed Her lipids are stable and there is no need to change her therapy. Problem 47784175 Essential hypertension (I10) Active confirmed Her blood pressure today is 146/80 No change in her regimen as necessary.She was referred back to primary care for control of hypertension. Problem Malignant tumor of colon (474598892) Colon cancer (C18.9) Active confirmed There is no sign of a new colon cancer recurrence. Observation will continue. 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 She is currently stable. These records will be obtained. No bleeding or new symptoms has occurred. Problem 824475989 Low back pain, unspecified (M54.50) Active confirmed Vital Signs Heart Rate 77 /min 04/13/2023 Temperature 97.7 degrees Fahrenheit 04/13/2023 Blood pressure diastolic 80 mm Hg 04/13/2023 Height 63 in 04/13/2023 Blood pressure systolic 146 mm Hg 04/13/2023 Weight 163 lbs 04/13/2023 BMI 28.87 kg/m2 04/13/2023 Encounters Encounter Location Date Provider Diagnosis Fox Smith III, MD [address] [place] [address] [place] [address] 04/13/2023 Fox Smith Colon cancer C18.9 ; Breast cancer C50.919 ; Essential hypertension I10 ; Thrombocytopenia D69.6 ; GERD (gastroesophageal reflux disease) K21.9 and Overweight E66.3 Fox Smith III, MD [address] [place] [address] [place] [address] 03/10/2023 Fox Smith Assessments Encounter Date Diagnosis (ICD Code) Assessment Notes Treat ment Notes Treatment Clinical Notes 04/13/2023 Breast cancer (ICD-1 0 - C50.919) There were no masses palppable in either breast. The lumpectomy scar is well-healed. There was no sign of a new primary or recurrent disease. Observation will continue. 04/13/2023 Colon cancer (ICD-10 - C18.9) There is no sign of a new colon cancer recurrence. Observation will continue. 04/13/2023 Essential hypertensi on (ICD-10 - I10) Her blood pressure today is 146/80 No change in her regimen as necessary.She was referred back to primary care for control of hypertension. 04/13/2023 Thrombocytopenia (ICD-10 - D69.6) Her platelets are stable at 144,000. No therapy is necessary.Her blood work will be repeated prior to her next visit. She will avoidd aspirin. 04/13/2023 GERD (gastroesophage al reflux disease) (ICD-10 - K21.9) Her reflux symptoms are controlled with medication and antacids. 04/13/2023 Overweight (ICD-10 - E66.3) Her body mass index is 28. I recommended she stabilize her weight and then reduce it by one half of a pound per week until about a mass index is in the normal range. Plan Of Treatment Pending Test Test Name Order Date PROFILE, FASTING (COMPREHENSIVE METABOLI C) 10/28/2021 PROFILE, RANDOM (COMPREHENSIVE METABOLIC ) 04/28/2022 CBC w DIFF 01/20/2022 CBC w DIFF 04/28/2022 CBC w DIFF 10/28/2021 XR LUMBAR SPINE 10/19/2021 XR PELVIS 10/19/2021 MAMMOGRAM DIGITAL BILATERAL SCREEN 09/08 Platelet Count 01/20/2022 Lipid Panel 10/28/2021 Next Appt Details Provider Name:Fox Smith, 04/13/2024 10:00:00 AM, [address] [place] [address] [address], [place], [address], Insurance Providers Payer Name Payer Address Payer Phone Subscriber Number Group Number Insured Name Patient Relationship to Insured Coverage Start Date Coverage End Date [employer] [address] [place] [phone] [id number] [facility] Mona Phan i Self - patient is the insured MEDICARE NGS [address] [place] [phone] [id number] Mona Phan i Self - patient is the insured Medical (General) History Medical History History ICD Code Carcinoma right breast, 2001. Lumpectomy and radiation Thrombocytopenia Breast cancer C50.919 Pulmonary nodules Hyperlipidemia Chronic low back pain GERD Hypertension Right carotid AVM Overweight Colon cancer 2009 Surgical History Surgery Date(Month/Year) Embolization right carotid artery. Arter iovenous malformation Biopsy, left breast, benign disease 1977 [facility]/BSO Cholecystectomy 2004 Neck surgery 2010 Partial colectomy with end to end anasto mosis 10/2008 Right breast lumpectomy 2001 left cataract extraction Appendectomy 2004
--- OUTSIDE RECORDS SUMMARY | 2024-03-07 12:47 | XMS_ITS ---
Author Organization Fox Smith III, MD Address [address] [place] [address] Care Team Providers Care Carton Catcher Name Role Phone Millie SANTIAGO, [facility] Primary Care Provider Fox Velazco [phone] REASON FOR VISIT Medical record request Encounters Encounter Location Date Provider Diagnosis Fox Smith III, MD [address] [place] [address] [address] [place] [address] 03/10/2023 Fox Smith Plan Of Treatment Next Appt Details Provider Name:Fox Smith, 04/13/2024 10:00:00 AM, [address] [facility] [address], [place], [address], Progress Notes * Mona MOROCHODOB: [birth year] (87 yo F)Acc No.[id number]:03/10/2023 Patient:?Kumar Mona :1935???Age:87 Y???Sex:Female Address: [place], [address] * true * Date:? Generated for Rebekahi kaitlin/Anthony/eTransmitting on:?03/07/2024 12:47 PM EST
--- OUTSIDE RECORDS SUMMARY | 2024-03-07 12:47 | XMS_ITS ---
Author Organization Fox Smith III, MD Address [address] [place] [address] Care Team Providers Care Hris Specialist Name Role Phone Millie SANTIAGO, [facility] Primary Care Provider Fox Velazco Unavailable [phone] Allergies Allergen (clinical drug ingredient) Drug/Non Drug Allergy documented on EMR Reaction Allergy Type Onset Date Status meperidine Demerol Unknown Drug Allergy Active REASON FOR VISIT Colon cancer in remissioon, Breast cancer in remission, Thrombocytopenia, Neutropenia Medications Medication SIG (Take, Route, Frequency, Duration) Notes Start Date End Date Status B12 Active Metoprolol Succinate ER 50 MG 1 tablet Orally Once a day Active Omeprazole 20 MG 1 capsule 30 minutes before morning meal Orally Once a day Active Simvastatin 10 MG as directed Orally Once a day Active Pravastatin Sodium A ctive Pramipexole Dihydrochloride 0.5 MG Oral for 90 Days Not-Taking Social History Tobacco Use: Social History Observation Description Date Details (start date - stop date) Never Smoker NA - NA Tobacco Use/Smoking Question Answer Notes Patient is a nonsmoker Additional Findings: Tobacco Non-User Aggressive non-smoker Vital Signs Temperature 97.7 degrees Fahrenheit 04/13/19 24 Blood pressure systolic 146 mm Hg 04/13/19 24 Blood pressure diastolic 80 mm Hg 024 Heart Rate 77 /min 04/13/2023 Height 63 in 04/13/2023 Weight 163 lbs 04/13/2023 BMI 28.87 kg/m2 04/13/2023 Encounters Encounter Location Date Provider Diagnosis Fox Smith III, MD [address] [place] [address] [place] [address] 04/13/2023 Fox Smith Colon cancer C18.9 ; Breast cancer C50.919 ; Essential hypertension I10 ; Thrombocytopenia D69.6 ; GERD (gastroesophageal reflux disease) K21.9 and Overweight E66.3 Assessments Encounter Date Diagnosis (ICD Code) Assessment Notes Treat ment Notes Treatment Clinical Notes 04/13/2023 Colon cancer (ICD-10 - C18.9) There is no sign of a new colon cancer recurrence. Observation will continue. 04/13/2023 Breast cancer (ICD-1 0 - C50.919) There were no masses palppable in either breast. The lumpectomy scar is well-healed. There was no sign of a new primary or recurrent disease. Observation will continue. 04/13/2023 Essential hypertensi on [...] in the normal range. Plan Of Treatment Medication Medication Name Sig Start Date Stop Date Notes B12 Metoprolol Succinate ER 50 MG 1 tablet Orally Once a day Omeprazole 20 MG 1 capsule 30 minutes before morning meal Orally Once a day Simvastatin 10 MG as directed Orally O nce a day Pravastatin Sodium Next Appt Details Follow Up: 1 Year, Reason: O V Provider Name:Fox Montelongorne, 04/13/2024 10:00:00 AM, [address] [place] [address] [address], [place], [address], Progress Notes * Mona MOROCHODOB: [birth year] (87 yo F)Acc No.[id number]:04/13/2023 Progress Notes Patient:?Mona Morocho Provider:?Fox Smith MD :1935???Age:87 Y???Sex:Female D ate:04/13/2023 Address:[id number] Pcp:Jaki Pinto MD Subjective: * Chief Complaints: * ???Colon cancer in remissioo nBreast cancer in remissionThrombocytopeniaNeutropenia * HPI: ???COVID-19 Screening:?Questions?Have you experienced fever, chills, cough, sore throat, shortness of breath, difficulty breathing, muscle aches, loss of taste or smell??No ?Have you been exposed to the virus within the last 10 days??No ?Have you travelled internationally in the last 10 days??No ?Have you been exposed to COVID-19 in the past??No ? She returns for a scheduled visit for surveillance of breast and colon cancer as well as her hematologic abnormalities. She reports that she was recently given a trial of pramipexole for leg cramps, but she did not tolerate this medication and stopped it. She has beeen examining her own breast at periodic intervals with no significant findings. Her bowel function has been normal. She denies any bleeding. She has had no abdominal pain or anorexia. Her weight is stable. She feels healthy and well tooday at the age of 87. Her examination showed no sign of a new malignancy or recurrence of the old. * ROS:?General/Constitutional:?pain?only normal aches and pains.?Chills?denies.?Fatigue?admits.?Fever?denies.?ENT:?Decreased hearing?in both ears.?Respiratory:?Cough?denies.?Cardiovascular:?Chest pain with exertion?denies.?Dyspnea on exertion?denies.?Shortness of breath?denies.?Gastrointestinal:?Constipation?occasional.?Decreased appetite?denies.?Diarrhea?denies.?Heartburn?denies.?Nausea?denies.?Rectal bleeding?denies.?Vomiting?denies.?Hematology:?bruising?denies.?petechiae?denies.?Swollen glands?none have been noted.?Genitourinary:?Frequent urination?a small amount.?Musculoskeletal:?Muscle aches?denies.?Painful joints?denies.?Sciatica?denies.?Weakness?that is generalized.?Skin:?Itching?denies.?Rash?denies.?Skin lesion(s)?denies.?Neurologic:?Difficulty speaking?denies.?Dizziness?denies.?Headache?denies.?Low back pain?denies.?Psychiatric:?Depressed mood?denies.? * Medical History:? * Surgical History:?Appendecto my 2005left cataract extraction Right breast lumpectomy 2002Partial colectomy with end to end anastomosis 10/2008[facility] surgery 2011Cholecystectomy 2005[facility]/BSO Biopsy, left breast, benign disease 1978Embolization right carotid artery. Arteriovenous malformation * Hospitalization/Major Diagno stic Procedure:?Denies Past Hospitalization * Family History:?Father: dece ased, Stroke, TIA, diagnosed with CVD.?Mother: 93 yrs, Myocardial infarction, coronary artery disease, diagnosed with CVD.?Siblings: diagnosed with HTN, Hyperlipidemia.?1 brother(s) , 4 sister(s) . 2 son(s) - healthy. .? Her father of stroke and had a history of transient ischemic attack. Her mother at the age of 93 of a myocardial infarction. A sister has as a complication of surgery. A brother has a brain tumor. She has 2 healthy sons. Jaron and Leonides. * Social History:?Tobacco Use:?Tobacco Use/Smoking?Patient is a?nonsmoker ?Additional Findings: Tobacco Non-User?Aggressive non-smoker ???She was born in [place] and lives in [place], [place]. She came to this country at the age of 51. She was 5 years ago. She has 2 sons Jaron and Leonides. She has 4 grandchildren and 3 great-grandchildren, all of whom who are healthy and well. She has a family history of heart disease, hypertension and hyperlipidemia. There is no other history of breast cancer, uterine cancer or ovarian cancer in her family. She does not have a anabaptist objection to blood transfusion. She has never smoked cigarettes. She is a retired hairdresser. * Medications:?[id number] Metop rolol Succinate ER 50 MG Tablet Extended Release 24 Hour 1 tablet Orally Once a dayOmeprazole 20 MG Capsule Delayed Release 1 capsule 30 minutes before morning meal Orally Once a daySimvastatin 10 MG Tablet as directed Orally Once a dayPravastatin Sodium Taking B12 Taking Metoprolol Succinate ER 50 MG Tablet Extended Release 24 Hour 1 tablet Orally Once a dayTaking Omeprazole 20 MG Capsule Delayed Release 1 capsule 30 minutes before morning meal Orally Once a dayTaking Simvastatin 10 MG Tablet as directed Orally Once a dayTaking Pravastatin Sodium Not-Taking/PRNPramipexole Dihydrochloride 0.5 MG Tablet Oral Medication List reviewed and reconciled with the patientNot-Taking/PRN Pramipexole Dihydrochloride 0.5 MG Tablet Oral Medication List reviewed and reconciled with the patient * Allergies:?Demerolno[Allergi es Verified] Objective: * Vitals:?Ht: 63, Wt:163, BMI: 28.87, BP:146/80, HR:77, Temp:97.7, Wt-k.94. * Examination: ???General Examination: ?GENERAL APPEARANCE:?pleasant, well nourished, well developed, in no acute distress, calm and relaxed , overweight , elderly woman.?HEAD:?atraumatic, normocephalic.?EYES:?eomi, perrla, anicteric, conjugate.?EARS:?normal.?NOSE:?septum intact.?ORAL CAVITY:?normal, unremarkable.?NECK/THYROID:?no jugular venous distention, no carotid bruit, thyroid normal.?LYMPH NODES:?no enlarged lymph nodes,spleen normal.?SKIN:?no suspicious lesions, anicteric.?HEART:?no clicks, gallops, murmurs, or rubs, regular rhythm, S1, S2 normal, no s3, or vascular bruits.?LUNGS:?clear to auscultation .?BREASTS:?no masses palpable bilaterally, Lumpectomy scar, right breast, well-healed, , no dimpling , no discharge , no drainage , nontender , symmetrical.?ABDOMEN:?bowel sounds normal, no ascites, no organomegaly, no mass, Laparotomy scar, well-healed.?RECTAL EXAM:?not examined.?MUSCULOSKELETAL:?extremities unremarkable, no clubbing, cyanosis or edema.?PERIPHERAL PULSES:?normal.?NEUROLOGIC:?alert and oriented, cranial nerves 2-12 grossly intact, deep tendon reflexes 2+ symmetrical, motor strength normal upper and lower extremities, sensory exam intact.?PSYCH:?alert, oriented , thought process logical, goal directed , cognitive function intact , cooperative with exam , speech clear.? Assessment: * Assessment: 1.?Colon cancer - C18.9 (Mindi cabrera), There is no sign of a new colon cancer recurrence. Observation will continue.?2.?Breast cancer - C50.919, There were no masses palppable in either breast. The lumpectomy scar is well-healed. There was no sign of a new primary or recurrent disease. Observation will continue.?3.?Essential hypertension - I10, Her blood pressure today is 146/80 No change in her regimen as necessary.She was referred back to primary care for control of hypertension.?4.?Thrombocytopenia - D69.6, Her platelets are stable at 144,000. No therapy is necessary.Her blood work will be repeated prior to her next visit. She will avoidd aspirin.?5.?GERD (gastroesophageal reflux disease) - K21.9, Her reflux symptoms are controlled with medication and antacids.?6.?Overweight - E66.3, Her body mass index is 28. I recommended she stabilize her weight and then reduce it by one half of a pound per week until about a mass index is in the normal range.? Plan: * Treatment: * Procedure Codes:? * Follow Up:?1 Year (Reason: O V) * Images: * Sign off status: Completed true * Provider:?Fox Smith MD Date:?03/28 Generated for Britany madrigal/Anthony/Shira on:?03/07/2024 12:46 PM EST History and Physical Notes * HPI (History of Present Illness) Category Sub-Category Detail Notes COVID-19 Screening Questions Have you expe rienced fever, chills, cough, sore throat, shortness of breath, difficulty breathing, muscle aches, loss of taste or smell?: No Have you been exposed to the virus with n the last 10 days?: No Have you travelled internationally in last 10 days?: No Have you been exposed to COVID-19 in the past?: No Examination Category Sub-Category Detail Notes General Examination GENERAL APPEARANCE: pleasant , well nourished, well developed, in no acute distress, calm and relaxed , overweight , elderly woman HEAD: atraumatic, normocep halic EYES: eomi, perrla, anicte nay, conjugate EARS: normal NOSE: septum intact NECK/THYROID: no jugular venous di stention, no carotid bruit, thyroid normal HEART: no clicks, gallops, murmurs, or rubs, regular rhythm, S1, S2 normal, no s3, or vascular bruits LUNGS: clear to auscultatio n ABDOMEN: bowel sounds normal, no ascites, no organomegaly, no mass, Laparotomy scar, well-healed NEUROLOGIC: alert and oriented, cranial nerves 2-12 grossly intact, deep tendon reflexes 2+ symmetrical, motor strength normal upper and lower extremities, sensory exam intact SKIN: no suspicious lesion s, anicteric PERIPHERAL PULSES: normal BREASTS: no masses palpable b ilaterally, Lumpectomy scar, right breast, well- healed, , no dimpling , no discharge , no drainage , nontender , symmetrical MUSCULOSKELETAL: extremities unremark able, no clubbing, cyanosis or edema LYMPH NODES: no enlarged lymph no melanie,spleen normal RECTAL EXAM: not examined PSYCH: alert, oriented , th ought process logical, goal directed , cognitive function intact , cooperative with exam , speech clear ORAL CAVITY: normal, unremarkable
--- OUTSIDE RECORDS SUMMARY | 2024-03-07 12:47 | XMS_ITS ---
Author Organization Fox Smith III, MD Address [address] [place] [address] Care Team Providers Care Elevator Builder Name Role Phone Millie SANTIAGO, Jaki Primary Care Provider Fox Velazco Unavailable [phone] REASON FOR VISIT follow up Encounters Encounter Location Date Provider Diagnosis Fox Smith III, MD [address] [place] [address] [address] [place] [address] 03/09/2023 Fox Smith Plan Of Treatment Next Appt Details Provider Name:Fox Smith, 04/13/2024 10:00:00 AM, [address] [facility] [address], [place], [address], Progress Notes * BANDARARGELIALEE MonaDOB: [birth year] (88 yo F)Acc No.[id number]:03/09/2023 Progress Notes Patient:?DAYNAANGÉLICADeeptiMona Provider:?Fox Smith MD :1935???Age:87 Y???Sex:Female D ate:03/09/2023 Address: [address] [id number] Pcp:Jaki Pinto MD Subjective: * Chief Complaints: * ???1. Follow up. * Medical History:? Objective: * Vitals:? Assessment: Plan: * Treatment: * Images: * The named appointment provid er may or may not be the originator of this progress note, and it is not deemed complete until electronically signed by the appointment provider. Sign off status: Pending * Provider:?Fox Smith MD Date:?02/25 Generated for Britany madrigal/Anthony/Shira on:?03/07/2024 12:47 PM EST
== END 2024-03-05 08:05 | disposition home or self-care (01) ==
LOC: HO.LAB 08:04
PROVIDERS: PCP Internal Medicine; Visit Provider Internal Medicine
DX: D69.6 Thrombocytopenia, unspecified (principal); E78.00 Pure hypercholesterolemia, unspecified; G60.8 Other hereditary and idiopathic neuropathies; I10 Essential (primary) hypertension; R53.83 Other fatigue
CPT/HCPCS: 36415; 80053; 80061; 84443; 85025

== ENCOUNTER 2024-07-23 10:53 | Outpatient (REF) | payer MEDICARE, SELFPAY ==
[2024-07-23 11:13] VITALS: BP 162/77; PULSE 53; RESP 16; TEMP 36.7; O2SAT 96; BMI 28.3
== END 2024-07-23 10:54 | disposition home or self-care (01) ==
LOC: HO.MS 10:53
PROVIDERS: PCP Internal Medicine; Visit Provider Ophthalmology
PROC: (CPT 66821; principal; 2024-07-23 12:30)
DX: H26.492 Other secondary cataract, left eye (principal)
CPT/HCPCS: 66821

== ENCOUNTER 2024-09-05 08:06 | Outpatient (REF) | payer MEDICARE, SELFPAY ==
--- OUTSIDE RECORDS SUMMARY | 2024-09-05 08:13 | XMS_ITS | Patient Health Record ---
Author Organization Fox Smith III, MD Address [address] [place] [address] Care Team Providers Care Animal Bounty Hunter Name Role Phone Millie SANTIAGO, [facility] Primary Care Provider Fox Velazco Unavailable [phone] Allergies Allergen (clinical drug ingredient) Drug/Non Drug [...] Problem Status W/U Status Risk Notes Problem 964178623 Overweight (E66.3) Active confirmed Her body mass index is 28. I recommended she stabilize her weight and then reduce it by one half of a pound per week until about a mass index is in the normal range. Problem Gastroesophageal reflux disease (835498023) GERD (gastroesophageal reflux disease) (K21.9) Active confirmed Her reflux symptoms are controlled with medication and antacids. Problem Breast cancer (091833850) Breast cancer (C50.919) Active confirmed There were no masses palppable in either breast. The lumpectomy scar is well-healed. There was no sign of a new primary or recurrent disease. Observation will continue. Problem 733406788 Thrombocytopenia (D69.6) Active confirmed Her platelets are stable at 144,000. No therapy is necessary.Her blood work will be repeated prior to her next visit. She will avoidd aspirin. 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 This problem has resolved. Problem 396282297 Mixed hyperlipidemia (E78.2) Active confirmed Her lipids are stable and there is no need to change her therapy. Problem 74164947 Essential hypertension (I10) Active confirmed Her blood pressure today is 146/80 No change in her regimen as necessary.She was referred back to primary care for control of hypertension. Problem Malignant tumor of colon (464298076) Colon cancer (C18.9) Active confirmed There is no sign of a new colon cancer recurrence. Observation will continue. 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 She is currently stable. These records will be obtained. No bleeding or new symptoms has occurred. Problem 499524994 Low back pain, unspecified (M54.50) Active confirmed Plan Of Treatment Pending Test Test Name Order Date PROFILE, FASTING (COMPREHENSIVE METABOLI C) 10/28/2021 PROFILE, RANDOM (COMPREHENSIVE METABOLIC ) 04/28/2022 CBC w DIFF 01/20/2022 CBC w DIFF 04/28/2022 CBC w DIFF 10/28/2021 XR LUMBAR SPINE 10/19/2021 XR PELVIS 10/19/2021 MAMMOGRAM DIGITAL BILATERAL SCREEN 09/08 Platelet Count 01/20/2022 Lipid Panel 10/28/2021 Insurance Providers Payer Name Payer Address Payer Phone Subscriber Number Group Number Insured Name Patient Relationship to Insured Coverage Start Date Coverage End Date [employer] PREF[employer]ED [address] [place] [phone] [id number] O Mona Phan i Self - patient is the insured MEDICARE NGS [address] [place] [phone] [id number] Emilie kuhn Mona Self - patient is the insured Medical [...]
[2024-09-05 08:29] LABS: MANUAL DIFF FLAG NO
[2024-09-05 09:31] LABS: Basophils Percent Auto 0.4 % (0-2); Eosinophils Absolute Auto 0.1 X10*3/uL (0.0-0.4); Eosinophils Percent Auto 2.2 % (0-4); Hematocrit 43.4 % (37.0-47.0); Hemoglobin 13.9 g/dl (12.0-16.0); Imm Gran Abs Auto 0.02 X10*3/uL (0.00-0.03); Imm Gran Pct Auto 0.4 % (0.0-0.4); Lymphocytes Absolute Auto 1.3 X10*3/uL (1.2-4.9); Lymphocytes Percent Auto 25.9 % (20-40); Mean Corpuscular Hemoglobin 29.2 pg (27.0-33.0); Mean Corpuscular Volume 91.2 fL (80.0-98.0); Mean Platelet Volume 11.2 fL (9.4-12.3); Monocytes Absolute Auto 0.5 X10*3/uL (0.1-1.2); Monocytes Percent Auto 10.6 % (2-11); Neutrophils Percent Auto 60.5 % (45-73); Platelet Count 136 X10*3/uL (160-400); Red Blood Count 4.76 X10*6/uL (4.20-5.50); Red Cell Distribution Width 12.4 % (11.0-16.0)
[2024-09-05 09:48] LABS: Alanine Aminotransferase 14 U/L (0-31); Alkaline Phosphatase 91 U/L (39-117); Anion Gap 8 (12-20); Aspartate Amino Transferase 26 U/L (5-31); Bilirubin Total 0.8 mg/dL (0.0-1.0); Blood Urea Nitrogen 15 mg/dL (9-16); Calcium 9.1 mg/dL (8.4-10.2); Carbon Dioxide 27 mmol/L (22-29); Chloride 111 mmol/L (96-108); Cholesterol 141 mg/dL (<200); Estimated Glomerular Filt Rate 57; Glucose Random 110 mg/dL (60-115); HDL Cholesterol 44 mg/dL (>40); LDL Cholesterol Calculated 74 mg/dL (<100); Potassium 4.4 mmol/L (3.3-5.1); Sodium 142 mmol/L (135-145); Total Protein 6.5 g/dL (6.5-8.0); Triglycerides 116 mg/dL (<150)
[2024-09-05 10:07] LABS: Thyroid Stimulating Hormone 0.45 uIU/mL (0.32-4.0)
== END 2024-09-05 08:07 | disposition home or self-care (01) ==
LOC: HO.LAB 08:06
PROVIDERS: PCP Internal Medicine; Visit Provider Internal Medicine
DX: D69.6 Thrombocytopenia, unspecified (principal); E78.00 Pure hypercholesterolemia, unspecified; G60.8 Other hereditary and idiopathic neuropathies; I10 Essential (primary) hypertension; R53.83 Other fatigue
CPT/HCPCS: 36415; 80053; 80061; 84443; 85025

== ENCOUNTER 2024-11-12 09:45 | Outpatient (REF) | payer MEDICARE, SELFPAY ==
[2024-11-12 10:11] VITALS: BP 162/85; PULSE 56; RESP 16; O2SAT 97; BMI 29.3
--- OUTSIDE RECORDS SUMMARY | 2024-11-12 10:27 | XMS_ITS | Patient Health Record ---
Author Organization Fox Smith III, MD Address [address] [place] [address] Care Team Providers Care Auditing Specialist Name Role Phone Millie SANTIAGO, [facility] Primary Care Provider Fox Velazco Unavailable [phone] Allergies Allergen (clinical drug ingredient) Drug/Non Drug [...] Problem Status W/U Status Risk Notes Problem 879432339 Overweight (E66.3) Active confirmed Her body mass index is 28. I recommended she stabilize her weight and then reduce it by one half of a pound per week until about a mass index is in the normal range. Problem GERD (gastroesophageal reflux disease) (K21.9) Active confirmed Her reflux symptoms are controlled with medication and antacids. Problem Breast cancer (406207307) Breast cancer (C50.919) Active confirmed There were no masses palppable in either breast. The lumpectomy scar is well-healed. There was no sign of a new primary or recurrent disease. Observation will continue. Problem 512477157 Thrombocytopenia (D69.6) Active confirmed Her platelets are stable at 144,000. No therapy is necessary.Her blood work will be repeated prior to her next visit. She will avoidd aspirin. 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 This problem has resolved. Problem 224583617 Mixed hyperlipidemia (E78.2) Active confirmed Her lipids are stable and there is no need to change her therapy. Problem 49232769 Essential hypertension (I10) Active confirmed Her blood pressure today is 146/80 No change in her regimen as necessary.She was referred back to primary care for control of hypertension. Problem Malignant tumor of colon (512939456) Colon cancer (C18.9) Active confirmed There is no sign of a new colon cancer recurrence. Observation will continue. 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 She is currently stable. These records will be obtained. No bleeding or new symptoms has occurred. Problem 710846938 Low back pain, unspecified (M54.50) Active confirmed [...] MEDICARE PREFERRED [address] [place] [phone] [id number] O Mona Phan i Self - patient is the insured MEDICARE NGS [address] [place] [phone] [id number] Mona Phan i Self - patient is [...] Partial colectomy with end to end anasto darline 10/2008 Right breast lumpectomy 2001 left cataract extraction Appendectomy 2004
== END 2024-11-12 09:46 | disposition home or self-care (01) ==
LOC: HO.MS 09:45
PROVIDERS: PCP Internal Medicine; Visit Provider Ophthalmology
PROC: (CPT 66821; principal; 2024-11-12 13:00)
DX: H26.491 Other secondary cataract, right eye (principal)
CPT/HCPCS: 66821